=== PATIENT | male | born 1960 | race Caucasian/White ===

== ENCOUNTER 2021-08-05 08:00 | Outpatient (CLI) | payer OTHER | END 2021-08-05 23:59 | LOC: LAB.N 08:00 | PROVIDERS: ATTEND Physician Assistant Medical | DX: U07.1 COVID-19 (principal) ==

== ENCOUNTER 2023-11-26 17:23 | Outpatient (CLI) | payer SELFPAY | END 2023-11-26 23:59 | disposition short-term general hospital (02) | LOC: EMS 17:23 | DX: S01.81XA Laceration without foreign body of other part of head, initial encounter (principal); R26.2 Difficulty in walking, not elsewhere classified; W00.0XXA Fall on same level due to ice and snow, initial encounter; Y93.01 Activity, walking, marching and hiking; F10.129 Alcohol abuse with intoxication, unspecified | CPT/HCPCS: A0425; A0429 ==